=== PATIENT | female | born 1955 | race Caucasian/White ===

== ENCOUNTER 2018-07-14 10:59 | Outpatient (CLI) | payer BC ==
--- NOTE | 2018-07-14 11:57 | RAD ---
Exam: 3 views left RIBS HISTORY: Rib cage somatic dysfunction. Pain and swelling. COMPARISON: none FINDINGS: No fracture. No cortical irregularity or periosteal reaction IMPRESSION: Unremarkable left rib radiograph series.
--- NOTE | 2018-07-14 11:58 | RAD ---
Exam: Right ribs 3 views HISTORY: Somatic dysfunction. Pain. Swelling. COMPARISON: None FINDINGS: No fracture. No cortical irregularity. No periosteal reaction. IMPRESSION: Unremarkable right rib radiograph series.
== END 2018-07-14 11:00 | disposition home or self-care (01) ==
LOC: BICRAD 10:59
PROVIDERS: ATTEND Family Medicine
DX: M99.08 Segmental and somatic dysfunction of rib cage (principal)

== ENCOUNTER 2018-12-02 10:34 | Outpatient (CLI) | payer BC ==
--- NOTE | 2018-12-02 12:52 | ULT ---
THYROID ULTRASOUND: INDICATIONS: Goiter. FINDINGS: Both thyroid lobes are homogeneous. Thyroid size appears within the normal range. The right lobe aleah ures 4.2 x 1.2 x 1.4 cm and the left lobe measures 3.5 x 1.0 x 1.0 cm. There is an irregularity shaped hypoechoic nodule in the mid right lobe of the thyroid which measures 1.4 x 1.0 cm. IMPRESSION: A hypoechoic nodule in the right lobe of thyroid. This represents a TI-RADS 4 lesion which is moderat vanita suspicious. Recommend FNA given its size, which approaches 1.5 cm. POS: [facility]
== END 2018-12-02 10:35 | disposition home or self-care (01) ==
LOC: BICULT 10:34
PROVIDERS: ATTEND Otolaryngology Plastic Surgery within the Head & Neck
DX: E03.9 Hypothyroidism, unspecified (principal); E04.1 Nontoxic single thyroid nodule
CPT/HCPCS: 76536

== ENCOUNTER 2020-12-29 11:01 | Outpatient (CLI) | payer BC | END 2020-12-29 11:02 | disposition home or self-care (01) | LOC: BICRAD 11:01 | PROVIDERS: ATTEND Nurse Practitioner Family | DX: R10.9 Unspecified abdominal pain (principal); N39.0 Urinary tract infection, site not specified; R30.0 Dysuria | CPT/HCPCS: 74018 ==

== ENCOUNTER 2022-10-18 23:35 | Inpatient (IN) | payer MEDICARE, BC ==
[2022-10-19 00:07] LABS: #Basophils 0.1 thou/uL (0.0-0.2); #Eosinphils 0.2 thou/uL (0.0-0.7); #Monocytes 0.4 thou/uL (0.11-0.59); #Neutrophils 4.2 thou/uL (1.40-6.50); %Basophils 1.4 % (0.0-1.0); %Eosinophils 2.4 % (0.0-10.0); %Lymphocytes 22.9 % (21.0-51.0); %Monocytes 6.8 % (0.0-10.0); %Neutrophils 65.9 % (42.0-75.0); Hematocrit 40.3 % (36.0-47.0); Hemoglobin 13.3 g/dL (12.0-16.0); Mean Corpuscular Hemoglobin 28.5 pg (27.0-31.0); Mean Corpuscular Volume 86.5 fl (78.0-98.0); Mean Platelet Volume 9.7 fL (7.4-10.4); Platelet Count 239 10x3/uL (130-400); RBC Distribution Width 13.4 % (11.5-14.5); Red Blood Cell (RBC) Count 4.66 mill/uL (4.20-5.40); White Blood Cell (WBC) Count 6.3 10x3/uL (4.8-10.8)
[2022-10-19 00:31] LABS: ALT (SGPT) 26 U/L (8-55); AST (SGOT) 24 U/L (5-34); Albumin 4.2 g/dL (3.4-4.8); Alkaline Phosphatase 63 U/L (40-110); Anion Gap 13 mmol/L (10-20); BUN (Urea Nitrogen) 15 mg/dL (9.8-20.1); Bilirubin, Total 0.4 mg/dL (0.2-1.2); Calc. Creatinine Clearance 0 mL/min (70-130); Calcium 9.7 mg/dL (7.8-10.44); Carbon Dioxide 27 mmol/L (23-31); Chloride 102 mmol/L (98-107); Estimated GFR 80; Globulin 2.4 g/dL (2.4-3.5); Glucose 121 mg/dL (80-115); Magnesium 2.1 mg/dL (1.6-2.6); Potassium 3.5 mmol/L (3.5-5.1); Protein, Total 6.6 g/dL (5.8-8.1); Sodium 138 mmol/L (136-145)
[2022-10-19 00:35] LABS: Troponin I Less than 0.010 ng/mL (< 0.028)
[2022-10-19 02:45] LABS: Bacteria/HPF None Seen HPF (None Seen); Bilirubin Negative (Negative); Blood, Urine Negative (Negative); CAUTI Indications for Culture Alt mental st,lethar; Clarity Clear (Clear); Glucose, Urine (Dipstick) Normal (Negative); Ketone, Urine Negative (Negative); Leukocyte Negative Leu/uL (Negative); Nitrite Negative (Negative); Protein, Urine (Dipstick) Negative (Neg-Trace); RBC/HPF 0-3 HPF (0-3); Specific Gravity, Urine 1.014 (1.002-1.036); Squamous Epithelial None Seen HPF (0-3); Urobilinogen Normal mg/dL (Less than 2); WBC/HPF 0-3 HPF (0-3)
[2022-10-19 02:49] LABS: Urine Culture Reflex No No
[2022-10-19] MEDS ORDERED: Senokot S 8.6-50 MG TAB PO PRN (03:12)
[2022-10-19] MEDS: Acetaminophen 325 MG TAB PO PRN ×3 (04:18→19:57)
[2022-10-19 04:59] VITALS: BMI 23.1
[2022-10-19 06:05] LABS: #Basophils 0.1 thou/uL (0.0-0.2); #Eosinphils 0.1 thou/uL (0.0-0.7); #Monocytes 0.6 thou/uL (0.11-0.59); %Eosinophils 0.9 % (0.0-10.0); %Lymphocytes 17.3 % (21.0-51.0); %Monocytes 7.1 % (0.0-10.0); %Neutrophils 73.3 % (42.0-75.0); Hematocrit 37.5 % (36.0-47.0); Hemoglobin 12.2 g/dL (12.0-16.0); Mean Corpuscular HGB CONC 32.5 g/dL (32.0-36.0); Mean Corpuscular Hemoglobin 28.4 pg (27.0-31.0); Mean Corpuscular Volume 87.4 fl (78.0-98.0); Mean Platelet Volume 9.8 fL (7.4-10.4); Platelet Count 216 10x3/uL (130-400); RBC Distribution Width 13.5 % (11.5-14.5); Red Blood Cell (RBC) Count 4.29 mill/uL (4.20-5.40); White Blood Cell (WBC) Count 8.2 10x3/uL (4.8-10.8)
[2022-10-19 06:46] LABS: ALT (SGPT) 21 U/L (8-55); AST (SGOT) 20 U/L (5-34); Albumin 3.7 g/dL (3.4-4.8); Alkaline Phosphatase 57 U/L (40-110); Anion Gap 10 mmol/L (10-20); BUN (Urea Nitrogen) 17 mg/dL (9.8-20.1); Bilirubin, Total 0.3 mg/dL (0.2-1.2); Calc. Creatinine Clearance 74 mL/min (70-130); Calcium 9.2 mg/dL (7.8-10.44); Carbon Dioxide 26 mmol/L (23-31); Chloride 105 mmol/L (98-107); Estimated GFR 95; Glucose 107 mg/dL (80-115); Protein, Total 5.7 g/dL (5.8-8.1); Sodium 137 mmol/L (136-145)
[2022-10-19 06:55] LABS: Free T4 (Free Thyroxine) 0.7 ng/dL (0.70-1.48); Thyroid Stimulating Hormone 0.3712 uIU/mL (0.35-4.94)
[2022-10-19] MEDS: Famotidine 20 MG TAB PO SCH ×2 (08:35→19:57)
[2022-10-20] MEDS: Acetaminophen 325 MG TAB PO PRN ×3 (02:58→20:40)
[2022-10-20] MEDS: Famotidine 20 MG TAB PO SCH ×2 (08:51→20:39)
[2022-10-21] MEDS: Acetaminophen 325 MG TAB PO PRN ×4 (03:43→23:36)
[2022-10-21] MEDS: Famotidine 20 MG TAB PO SCH ×2 (08:44→20:12)
[2022-10-21] MEDS ORDERED: Iopamidol 370 76% 100 ML VIAL ONE (09:42)
[2022-10-22 04:49] LABS: #Basophils 0.1 thou/uL (0.0-0.2); #Eosinphils 0.2 thou/uL (0.0-0.7); #Monocytes 0.4 thou/uL (0.11-0.59); %Lymphocytes 31.1 % (21.0-51.0); %Monocytes 7.9 % (0.0-10.0); %Neutrophils 54.6 % (42.0-75.0); Hematocrit 40.1 % (36.0-47.0); Mean Corpuscular HGB CONC 32.4 g/dL (32.0-36.0); Mean Corpuscular Hemoglobin 28.6 pg (27.0-31.0); Mean Corpuscular Volume 88.3 fl (78.0-98.0); Mean Platelet Volume 9.6 fL (7.4-10.4); Platelet Count 214 10x3/uL (130-400); RBC Distribution Width 13.2 % (11.5-14.5); Red Blood Cell (RBC) Count 4.54 mill/uL (4.20-5.40); White Blood Cell (WBC) Count 5.6 10x3/uL (4.8-10.8)
[2022-10-22 05:40] LABS: Anion Gap 11 mmol/L (10-20); BUN (Urea Nitrogen) 12 mg/dL (9.8-20.1); Calc. Creatinine Clearance 64 mL/min (70-130); Calcium 9.7 mg/dL (7.8-10.44); Carbon Dioxide 32 mmol/L (23-31); Chloride 100 mmol/L (98-107); Estimated GFR 81; Glucose 86 mg/dL (80-115); Potassium 4.5 mmol/L (3.5-5.1); Sodium 138 mmol/L (136-145)
[2022-10-22] MEDS: Sodium Chloride 0.9% 1,000 ML IV SCH ×2 (06:38→20:01)
[2022-10-22] MEDS ORDERED: Gentamicin 80 MG/2 ML VIAL ONE ×2 (06:49→11:07)
[2022-10-22] MEDS ORDERED: CEFAZOLIN 1 GM VIAL ONE ×2 (06:49→11:07)
[2022-10-22] MEDS ORDERED: Lidocaine 1% (PF) 30 ML VIAL ONE ×3 (06:49→11:07)
[2022-10-22] MEDS ORDERED: CEFAZOLIN 2 GM VIAL ONE ×2 (06:49→11:07)
[2022-10-22] MEDS ORDERED: fentaNYL 50 mcg/mL 1 mL Vial ONE (07:02)
[2022-10-22] MEDS ORDERED: Midazolam HCl 2 mg/2 ml Vial ONE (07:02)
[2022-10-22] MEDS: Famotidine 20 MG TAB PO SCH ×2 (08:35→20:06)
[2022-10-22] MEDS: Acetaminophen 325 MG TAB PO PRN (08:43)
[2022-10-22] MEDS ORDERED: Adenosine 6 MG/2 ML VIAL ONE (11:07)
[2022-10-23] MEDS: Acetaminophen 325 MG TAB PO PRN ×2 (05:11→10:04)
[2022-10-23 05:17] LABS: #Basophils 0.1 thou/uL (0.0-0.2); #Eosinphils 0.2 thou/uL (0.0-0.7); #Monocytes 0.4 thou/uL (0.11-0.59); #Neutrophils 2.7 thou/uL (1.40-6.50); %Basophils 1.9 % (0.0-1.0); %Eosinophils 4.2 % (0.0-10.0); %Lymphocytes 33.9 % (21.0-51.0); %Monocytes 8.2 % (0.0-10.0); %Neutrophils 51.2 % (42.0-75.0); Hematocrit 39.8 % (36.0-47.0); Hemoglobin 12.9 g/dL (12.0-16.0); Mean Corpuscular HGB CONC 32.4 g/dL (32.0-36.0); Mean Corpuscular Hemoglobin 28.5 pg (27.0-31.0); Mean Corpuscular Volume 88.1 fl (78.0-98.0); Mean Platelet Volume 9.7 fL (7.4-10.4); Platelet Count 227 10x3/uL (130-400); RBC Distribution Width 13.3 % (11.5-14.5); Red Blood Cell (RBC) Count 4.52 mill/uL (4.20-5.40); White Blood Cell (WBC) Count 5.2 10x3/uL (4.8-10.8)
[2022-10-23 05:39] LABS: Anion Gap 11 mmol/L (10-20); BUN (Urea Nitrogen) 11 mg/dL (9.8-20.1); Calc. Creatinine Clearance 72 mL/min (70-130); Calcium 9.2 mg/dL (7.8-10.44); Carbon Dioxide 25 mmol/L (23-31); Chloride 105 mmol/L (98-107); Estimated GFR 94; Glucose 83 mg/dL (80-115); Potassium 4.2 mmol/L (3.5-5.1); Sodium 137 mmol/L (136-145)
[2022-10-23] MEDS ORDERED: fentaNYL 50 mcg/mL 1 mL Vial ONE (06:03)
[2022-10-23] MEDS ORDERED: Midazolam HCl 2 mg/2 ml Vial ONE (06:03)
[2022-10-23] MEDS ORDERED: CEFAZOLIN 2 GM VIAL ONE (06:04)
[2022-10-23] MEDS ORDERED: Gentamicin 80 MG/2 ML VIAL ONE (06:04)
[2022-10-23] MEDS ORDERED: Lidocaine 1% (PF) 30 ML VIAL ONE (06:04)
[2022-10-23] MEDS ORDERED: CEFAZOLIN 1 GM VIAL ONE (06:04)
[2022-10-23] MEDS ORDERED: Atropine Sulfate 1 mg/10 ml Syringe ONE (08:52)
[2022-10-23] MEDS: Famotidine 20 MG TAB PO SCH (10:03)
[2022-10-23] MEDS: Sodium Chloride 0.9% 1,000 ML IV SCH (10:03)
[2022-10-23 15:54] VITALS: BP 141/88; TEMP 98.2
== END 2022-10-23 15:45 | disposition home or self-care (01) | DRG 244 ==
LOC: ERS 23:35 → 2SE 10-19 01:53 → OBSVTOIN 10-21 08:58
PROVIDERS: ADMIT Internal Medicine; ATTEND Emergency Medicine
PROC: 0JH606Z Insertion of Pacemaker, Dual Chamber into Chest Subcutaneous Tissue and Fascia, Open Approach (ICD-10-PCS; principal; 2022-10-23)
PROC: 02H63JZ Insertion of Pacemaker Lead into Right Atrium, Percutaneous Approach (ICD-10-PCS; 2022-10-23)
PROC: 02HK3JZ Insertion of Pacemaker Lead into Right Ventricle, Percutaneous Approach (ICD-10-PCS; 2022-10-23)
DX: I49.5 Sick sinus syndrome (principal); S00.83XA Contusion of other part of head, initial encounter; S00.03XA Contusion of scalp, initial encounter; R51.9 Headache, unspecified; M25.519 Pain in unspecified shoulder; I10 Essential (primary) hypertension; H70.92 Unspecified mastoiditis, left ear; F32.A Depression, unspecified; H81.09 Meniere's disease, unspecified ear; R00.0 Tachycardia, unspecified; W18.30XA Fall on same level, unspecified, initial encounter; Z90.89 Acquired absence of other organs; Z88.8 Allergy status to other drugs, medicaments and biological substances; Z90.710 Acquired absence of both cervix and uterus; Z98.890 Other specified postprocedural states; Z91.040 Latex allergy status; Z88.2 Allergy status to sulfonamides; E89.0 Postprocedural hypothyroidism; Z79.899 Other long term (current) drug therapy; I08.1 Rheumatic disorders of both mitral and tricuspid valves
CPT/HCPCS: 33208; 36415; 70450; 70551; 71045; 71275; 80048; 80053; 81001; 83735; 83880; 84439; 84443; 84484; 85025; 93005; 93010; 93306; 93880; 96372; 97139; 99152; 99153; C1785; C1898; G0378; J0153; J0461; J0690; J1580; J1650; J2001; J2250; J3010; J7050; Q9967

== ENCOUNTER 2023-11-19 10:44 | Outpatient (CLI) | payer MEDICARE | END 2023-11-19 10:45 | disposition home or self-care (01) | LOC: BICMAMMO 10:44 | PROVIDERS: ATTEND Family Medicine | DX: Z78.0 Asymptomatic menopausal state (principal); M81.0 Age-related osteoporosis without current pathological fracture | CPT/HCPCS: 77080 ==